=== PATIENT | male | born 1950 | race Caucasian/White ===

== ENCOUNTER 2020-08-15 00:27 | Inpatient (IN) | payer MEDICARE, OTHER ==
[~2020-08-15] VITALS: Ht 165.1 cm; Wt 74.8 kg
[2020-08-15] MEDS ORDERED: NITROGLYCERIN 0.4 MG/TAB BOTTLE SL ONE ×2 (01:15→01:16)
[2020-08-15] MEDS ORDERED: ASPIRIN 81 MG TAB.CHEW PO ONE (01:15)
[2020-08-15] MEDS ORDERED: ASPIRIN 81 MG TAB.CHEW ONE ×2 (01:16→12:44)
[2020-08-15 01:23] LABS: CREATININE 1.1 mg/dL (0.6-1.3)
[2020-08-15 01:35] LABS: BILIRUBIN,DIRECT 0.1 mg/dL (0.0-0.2); BILIRUBIN,TOTAL 0.2 mg/dL (0.2-1.0)
[2020-08-15 01:41] LABS: BASOPHILS % (AUTO) 0.9 % (0.0-2.0); EOSINOPHILS # (AUTO) 0.1 K/uL (0.0-0.7); EOSINOPHILS % (AUTO) 2.9 % (0.0-7.0); HEMATOCRIT 42.3 % (36.7-47.1); HEMOGLOBIN 14.5 g/dL (12.5-16.3); LYMPHOCYTES # (AUTO) 1.9 K/uL (20.0-40.0); LYMPHOCYTES % (AUTO) 39.3 % (20.5-51.5); MEAN CORPUSCULAR HEMOGLOBIN 32.3 uug (23.8-33.4); MEAN CORPUSCULAR HGB CONC 34 g/dL (32.5-36.3); MONOCYTES # (AUTO) 0.4 K/uL (2.0-10.0); MONOCYTES % (AUTO) 9.3 % (0.0-11.0); NEUTROPHILS # (AUTO) 2.3 K/uL (1.8-8.9); NEUTROPHILS % (AUTO) 47.6 % (38.5-71.5); PLATELET COUNT (AUTO) 228 K/uL (152-348); WHITE BLOOD COUNT (AUTO) 4.8 K/uL (3.6-10.2)
[2020-08-15] MEDS ORDERED: MORPHINE SULFATE 2 MG/1 ML DISP.SYRIN IV ONE (01:45)
[2020-08-15] MEDS ORDERED: NITROGLYCERIN OINT 1 GM PACKET TP ONE ×2 (01:45→01:56)
[2020-08-15] MEDS ORDERED: ONDANSETRON 4 MG/2 ML VIAL IV ONE (01:45)
[2020-08-15] MEDS ORDERED: ONDANSETRON 4 MG/2 ML VIAL ONE (01:57)
[2020-08-15] MEDS ORDERED: MORPHINE SULFATE 2 MG/1 ML DISP.SYRIN ONE (02:03)
--- NOTE | 2020-08-15 02:24 | NUR ---
EKG/LABS/CXR/MEDS/SALINE LOCK /MONITOR PO2 COMPLETED. PT'S CP 0/10 AFTER RECEIVING MORPHINE IV. MONITOR SHOWS NSR/PO2 ON ROOMAIR=99%. PT AWAITING LAB RESULTS.
[2020-08-15] MEDS ORDERED: levoFLOXacin 750 MG/D5W 150 ML PIGGYBACK IV ONE (02:30)
[2020-08-15] MEDS ORDERED: levoFLOXacin 750MG/D5W 150 ML IV ONE (02:46)
--- NOTE | 2020-08-15 02:54 | NUR ---
RAPID COVID SPECIMEN SENT, PRESENTLY AWAITING FOR LAB TO DRAW LAB CULTURES BEFORE ADMINISTERING, LEVAQUIN IVPB.
[2020-08-15] MEDS ORDERED: ONDANSETRON 4 MG/2 ML VIAL IV PRN (03:15)
[2020-08-15] MEDS ORDERED: HYDROCODONE/APAP 5-325MG TABLET PO PRN (03:15)
[2020-08-15] MEDS ORDERED: MAGNESIUM HYDROXIDE 30 ML LIQUID UDC PO PRN (03:15)
[2020-08-15] MEDS ORDERED: Z GUARD REMEDY PASTE 57 GM TUBE TOP PRN (03:15)
[2020-08-15] MEDS ORDERED: ACETAMINOPHEN 325 MG TABLET PO PRN (03:15)
[2020-08-15] MEDS ORDERED: levoFLOXacin 500 MG/D5W 500 MG in PREMIXED 1 EACH IV SCH (03:15)
--- NOTE | 2020-08-15 04:16 | NUR ---
LEVAQUIN INFUSED, AWAITING FOR TELE BED. PT RESTING WITH EYES CLOSED.
--- NOTE | 2020-08-15 05:10 | NUR ---
NO NURSES AVAIL FOR ADMISSION. PT TO AWAIT FOR NEXT SHIFT. PRESENTLY MONITOR SHOWS NSR, STABLE VITALS, PT SLEEPING WITH EYES CLOSED,NO DISTRESS.
--- NOTE | 2020-08-15 06:49 | NUR ---
PT AWAITING TELE BED TO BE AVAILABLE, MONITOR SHOWS NSR, PT DENIED CP.
--- NOTE | 2020-08-15 07:08 | NUR ---
REPORT TO AM SHIFT, PT RESTING, AWAITING TELE BED
--- NOTE | 2020-08-15 07:10 | NUR ---
recieved prt in bed, resting, awake, no sign of distress. pt denies any pain or n/v at this time.
--- NOTE | 2020-08-15 08:00 | NUR ---
Floyd traore in ED - 08/15/20 at 1408 by BLU heparin mikel readjusted with the 0730 ptt results.
--- NOTE | 2020-08-15 08:25 | NUR ---
breakfast tray at bedside.
[2020-08-15] MEDS ORDERED: ENOXAPARIN SODIUM 40 MG/0.4 ML DISP.SYRIN SQ SCH (09:00)
[2020-08-15] MEDS ORDERED: ASPIRIN 81 MG TAB.CHEW PO SCH (09:00)
[2020-08-15] MEDS ORDERED: ENOXAPARIN SODIUM 40 MG/0.4 ML DISP.SYRIN SQ ONE (12:45)
--- NOTE | 2020-08-15 14:00 | NUR ---
Dr. Stein at bedside.
--- NOTE | 2020-08-15 14:05 | NUR ---
transfer to tele still pending on bed availability.
[2020-08-15] MEDS ORDERED: ASPI81TA31 PO (14:44)
[2020-08-15] MEDS ORDERED: ATOR20TA PO (14:44)
--- NOTE | 2020-08-15 15:02 | NUR ---
Quita Rodriguez, [employer] and Dr. Stein at bedside, d/cing the pt. Patient discharged to home in stable condition. Written and verbal after care instructions given. Patient verbalizes understanding of instructions. Stressed follow up or return to ER for worsening s/s. pt will follow up with Dr. Stein.
[2020-08-15 15:08] VITALS: BP 120/83
[2020-08-16] MEDS ORDERED: levoFLOXacin 500 MG/D5W 500 MG in PREMIXED 1 EACH IV SCH (03:00)
== END 2020-08-15 18:30 | disposition home or self-care (01) | DRG 206 ==
LOC: ER 00:32 → TELE3 14:35
PROVIDERS: ADMIT Nurse Practitioner Acute Care; ATTEND Nurse Practitioner Acute Care
DX: M94.0 Chondrocostal junction syndrome [Tietze] (principal); F17.210 Nicotine dependence, cigarettes, uncomplicated; E78.5 Hyperlipidemia, unspecified
CPT/HCPCS: 36415; 70030-TC; 71045; 85025; 85730; 87040; 93005; A4663; G0378; J1650; J1956; J2270; J2405